=== PATIENT | male | born 1995 | race Native Hawaiian/Other Pacific Islander ===

== ENCOUNTER 2018-06-02 18:45 | Emergency (ER) | payer OTHER ==
--- NOTE | 2018-06-02 20:41 | ED PDOC ---
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 Patient was playing basketball when he jumped up and broke his fall with his left hand. He has acute pain and numbness in his fingers. Patient has not taken any medication for pain. PMD: None provided <Amarilys Cabrera - Last Filed: 06/04/18 21:41> <Bret Teran - Last Filed: 06/05/18 13:53> Time Seen by Provider: 06/02/18 19:06 Chief Complaint (Nursing): Upper Extremity Problem/Injury Supervising Attending Note - Supervising Attending Note The Documented history was done by the: Physician Drilling Engineering Manager, Attending Physician The documented physical exam was done by the: Physician Drilling Engineering Manager, Attending Physician The documented procedures were done by the: Physician Drilling Engineering Manager, Attending Physician - Attestation: I have personally seen and examined this patient.: Yes I have fully participated in the care of the patient.: Yes I have reviewed all pertinent clinical information: Yes <Bret eTran - Last Filed: 06/05/18 13:53> Past Medical History Reviewed: Historical Data, Nursing Documentation, Vital Signs Vital Signs: Last Vital Signs Temp 98.1 F 06/02/18 18:53 Pulse 96 H 06/02/18 18:53 Resp 16 06/02/18 18:53 BP 93/65 L 06/02/18 18:53 Pulse Ox 99 06/02/18 18:53 - Medical History PMH: No Chronic Diseases - Family History Family History: States: Unknown Family Hx <Amarilys Cabrera - Last Filed: 06/04/18 21:41> Reviewed: Historical Data Vital Signs: Last Vital Signs Temp 98.3 F 06/03/18 00:35 Pulse 72 06/03/18 00:35 Resp 18 06/03/18 00:35 BP 125/82 06/03/18 00:35 Pulse Ox 99 06/03/18 01:29 - Surgical History Surgical History: No Surg Hx <Bret Teran - Last Filed: 06/05/18 13:53> - Home Medications Home Medications: Ambulatory Orders Medication Instructions Recorded Ibuprofen [Motrin Tab] 800 mg PO Q6 PRN 7 Days tab 06/03/18 oxyCODONE/Acetaminophen [Percocet 1 ea PO Q8 PRN 3 Days tab 06/03/18 5/325 mg Tab] - Allergies Allergies/Adverse Reactions: Allergies Allergy/AdvReac Type Severity Reaction Status Date / Time Penicillins Allergy RASH Verified 06/02/18 18:47 Review of Systems ROS Statement: Except As Marked, All Systems Reviewed And Found Negative Musculoskeletal: Positive for: Other (left wrist pain with numbness in fingers) <Amarilys Cabrera - Last Filed: 06/04/18 21:41> ROS Statement: Except As Marked, All Systems Reviewed And Found Negative <Bret Teran - Last Filed: 06/05/18 13:53> Physical Exam - Reviewed Nursing Documentation Reviewed: Yes Vital Signs Reviewed: Yes - Physical Exam Appears: Positive for: Uncomfortable Head Exam: Positive for: ATRAUMATIC, NORMOCEPHALIC Skin: Positive for: Normal Color, Warm, Dry Eye Exam: Positive for: Normal appearance, EOMI, PERRL Pulses-Radial (L): 2+ Pulses-Radial (R): 2+ Extremity: Positive for: Capillary Refill (Is 3 seconds), Deformity (Left wrist), Swelling (Left wrist), Other (Left wrist: ecchymosis. Full ROM with flexion and extension of all 5 digits. Decreased ROM with flexion and extension of left wrist. Left elbow has full ROM. ) Neurological/Psych: Positive for: Awake, Alert, Oriented (X3) <Amarilys Cabrera - Last Filed: 06/04/18 21:41> - Reviewed Nursing Documentation Reviewed: Yes <Bret Teran - Last Filed: 06/05/18 13:53> - ECG O2 Sat by Pulse Oximetry: 99 (RA) Pulse Ox Interpretation: Normal <Amarilys Cabrera - Last Filed: 06/04/18 21:41> Medical Decision Making Medical Decision Making: Time: 19:58 Plan: --Left wrist XR --Ibuprofen 600 mg PO x1 --Ice pack to left wrist Time: 20:33 XR read by provider, grossly displaced distal radial fracture, not comminuted. Dr. Guo, Orthopedics consulted, awaiting return call. Left arm elevated. Time: 2107 --Still awaiting return call from Dr. Guo, radial pulse is 2+. 22:00: Case reviewed with Dr. Forbes who recommends manual reduction in ER, sugar tong splint with heavy padding. Pain management and follow up in office next week. Pt to have CT scan for follow up appointment. Procedure note: Reduction of Left wrist distal radial fracture Site: Left wrist Conscious sedation: Yes, Propofol while being monitored on ET CO2 and panel monitor administered at 22:29 Reduction attempts: 1 (successful) Pre-procedure NV exam: Yes, radial puse 2+ pre and post reduction; numbness resolved post-reduction Post joint reduction film: Joint reduced Procedure completed 22:33, sugar tong splint placed immediately after x-ray confirmation of reduction 00:30: pt monitored on telemetry for 2 hours, awake and alert immediately after procedure completed at 22:35. He is feeling well. Hand Clerical Verifier number [id number] used for discharge instructions including need to keep splint dry, addictive properties of Percocet so to use only for severe pain not managed by Ibuprofen. All questions answered. Patient cleared to fly tomorrow to [place] as planned but advised to present to local ER if he has worsening numbness or swelling of Left hand. ScribeAttestation: Documented byAna Ellison, acting as a scribe for Amarilys Cabrera PA-C. Provider ScribeAttestation: All medical record entries made by the Scribe were at my direction and personally dictated by me. I have reviewed the chart and agree that the record accurately reflects my personal performance of the history, physical exam, medical decision making, and the department course for this patient. I have also personally directed, reviewed, and agree with the discharge instructions and disposition. <Amarilys Cabrera - Last Filed: 06/04/18 21:41> Medical Decision Makin i personally examined the patient. left arm left hand NV intact. CR normal. Warm skin. soft on palpation, pulses 2+ <Bret Teran Nohemy - Last Filed: 06/05/18 13:53> Procedures - Time-Out Type of Procedure: reduction of left distal radial fracture Site of Procedure: left Correct Patient: Yes Correct Procedure: Yes - Splinting Location: Left wrist Hand-Made Type: orthoglass Splint: sugar-tong Pre-Proc Neuro Vasc Exam: abnormal (mild numbess, radial pulse 2+) Post-Proc Neuro Vasc Exam: normal (Radial pulse 2+, normal sensation), changed from pre-exam (improved) <Amarilys Cabrera - Last Filed: 06/04/18 21:41> - Time-Out Correct Site Marked: Yes X-Ray Marked: Yes Physician Name: Jeffry - Joint Reduction Conscious Sedation: Yes Reduction Attempts: 1 Pre-Procedure NV Exam: Yes Post Joint Reduction Film: joint reduced Progress: Left wrist postprocedure NV intact <JosejohnBillcatina Nohemy - Last Filed: 06/05/18 13:53> Disposition - Patient ED Disposition Is Patient to be Admitted: No Discussed With DrAndre: Tello Forbes Counseled Patient/Family Regarding: Studies Performed, Diagnosis, Need For Followup, Rx Given - Disposition Disposition: Routine/Home Disposition Time: 00:40 <TimmyMigueCabralAmarilys - Last Filed: 06/04/18 21:41> Doctor Will See Patient In The: Office - POA Present On Arrival: Falls Or Trauma <Bret Teran - Last Filed: 06/05/18 13:53> - Clinical Impression Clinical Impression: Distal radius fracture, left - Disposition Referrals: Tello Forbes MD [Staff Provider] - Condition: GOOD Additional Instructions: Follow up with Dr. Forbes next week. His office will contact you to arrange appointment to discuss need for surgery. Take Tylenol or Ibuprofen for pain. Take Percocet for severe pain not treated with Ibuprofen or Tylenol. Return to ER if you develop worsening numbness or tingling of left hand. Read post- sedation instructions. Keep splint dry. Avoid using your left hand or arm while splint is in place. Prescriptions: Ibuprofen [Motrin Tab] 800 mg PO Q6 PRN 7 Days tab PRN Reason: Pain, Moderate (4-7) oxyCODONE/Acetaminophen [Percocet 5/325 mg Tab] 1 ea PO Q8 PRN 3 Days tab PRN Reason: Pain, Severe (8-10) Instructions: Radius Fracture (DC), Moderate Sedation in Adults (DC) Forms: [employer] (Upper Sorbian) Print Language: ANDORRAN ED Procedural Sedation <Amarilys Cabrera - Last Filed: 06/04/18 21:41> - Pre Anesthesia Assessment Last Known Meal: 1800 Past Medical History: Medications Reviewed, Allergies Reviewed Previous Surgies: Reviewed Family History/Social History: Reviewed - Physical Exam/Review of Systems Vital Signs Reviewed: Yes - Pre-Procedure Airway Assessment History of difficult intubation or surgical airway(i.e trach: No Inability to extend neck:: No Mouth opening less than two finger breadth:: No Diagnosis of sleep apnea:: No Less than three finger breadth to hyoid bone:: No ASA Criteria: 1 - Healthy, normal. 2 - Mild systemic disease (No functional limitations, mildline obesity, DM withot complications, Hypertention). 3 - Severe systemic disease (Some functional limitation, stable angina, morbid obesity, controlled COPD/Asthma/CHF). 4 - Sever systemic disease constant threat to life (Unstable angina, active symptoms of COPD/Asthma, CHF/Hypertension. 5 - Moribund ASA Clarification: ASA I Mallampati (airway): Class II - Intra-Procedure (Medications) Medications Given: Discontinued Medications Sodium Chloride (Sodium Chloride 0.9%) 1,000 mls @ 1,000 mls/hr IV .Q1H STA Stop: 06/02/18 22:41 Last Admin: 06/02/18 22:33 Dose: 1,000 mls/hr eMAR Start Stop Document 06/02/18 22:33 [email or web address] (Rec: 06/02/18 23:03 [email or web address] [id number]) Intravenous Solution Start Date 06/02/18 Start Time 22:33 Ibuprofen (Motrin Tab) 600 mg PO STAT STA Stop: 06/02/18 19:59 Last Admin: 06/02/18 20:04 Dose: 600 mg MAR Pain Assessment Document 06/02/18 20:04 [email or web address] (Rec: 06/02/18 20:04 [email or web address] [id number]) Pain Reassessment Is this a pain reassessment? No Sleep Is patient sleeping during reassessment? No Presence of Pain Presence of Pain Yes Pain Scale Used Protocol: PSCALES Pain Scale Used Numeric Location Left, Right or Bilateral Left Pain Location Body Site Wrist Description Description Constant Intensity of Pain at present 7 Pain Behavior Guarding Irritability Aggravating Factors ADL's Alleviating Factors/Management Medication Techniques Alleviating Factors Medication Re-Assess: MAR Pain Reassessment Document 06/02/18 21:04 [email or web address] (Rec: 06/02/18 22:01 [email or web address] [id number]) Sleep Is patient sleeping during reassessment? No Pain Reassessment Protocol: PSCALES Pain not relieved and LIP/MD was No notified Pain Scale Used Numeric Pain Scale Level 0 Propofol (Diprivan) 135 mg IV ONCE ONE Stop: 06/02/18 22:30 Last Admin: 06/02/18 23:09 Dose: 135 mg eMAR Start Stop Document 06/02/18 23:09 [email or web address] (Rec: 06/02/18 23:09 [email or web address] [id number]) Intravenous Solution Start Date 06/02/18 Start Time 22:29 Álvarez Agitation Sedation Document 06/02/18 23:09 [email or web address] (Rec: 06/02/18 23:09 [email or web address] [id number]) Álvarez Agitation Sedation Scale Álvarez Agitation Sedation Scale Score 0 Alert and Calm: Spontaneously pays attention to technical healthcare consultant Propofol 135 mg IV push Physician Pushed Medication: Yes - Post-Procedure Post Procedure Note: Deep sedation protocol Etco2 monitoring done Post procedure exam NV intact left arm splint applied <Bret Teran - Last Filed: 06/05/18 13:53> - Pre Anesthesia Assessment Chief Complaint: Upper Extremity Problem/Injury
[2018-06-02] MEDS ORDERED: Sodium Chloride 0.9% 1,000 ML IV STA (21:42)
[2018-06-02] MEDS ORDERED: Propofol 10 mg/ml Inj (20 ML) IV ONE ×2 (21:42→22:29)
[2018-06-02] MEDS ORDERED: Propofol 10 mg/ml Inj (20 ML) ONE (21:58)
[2018-06-02 23:53] VITALS: RESP 18
[2018-06-03 00:35] VITALS: BP 125/82; PULSE 72; TEMP 98.3
[2018-06-03 01:10] VITALS: O2SAT 99
--- NOTE | 2018-06-03 08:39 | RAD ---
Date of service: 06/02/2018 PROCEDURE: Left Wrist Radiographs. HISTORY: s/p reduction of left wrist fracture COMPARISON: None. FINDINGS: BONES: Three views of the left wrist were performed for left wrist fracture. Comparison made prior study performed earlier on the same day. There has been interval reduction of previously identified distal left radial fracture with improved anatomic alignment from the prior examination although some persistent overlap remains. Moderate soft tissue swelling is seen overlying the left wrist. No appreciable carpal bone fracture or abnormal carpal bone joint space widening is seen. Distal ulna is intact. There is additionally improved alignment of the carpus in relation to the radius. A tiny subtle loose body in the radiocarpal joint region is not excluded. JOINTS: See above. SOFT TISSUES: See above. OTHER FINDINGS: None. IMPRESSION: Status post external reduction of left wrist fracture described above.
--- NOTE | 2018-06-03 08:42 | RAD ---
Date of service: 06/02/2018 PROCEDURE: Left Wrist Radiographs. HISTORY: s/p fall onto left wrist, + deformity COMPARISON: None. FINDINGS: BONES: Three views of the left wrist were performed for left wrist pain. There is evidence of a angulated and moderately displaced distal left radial fracture. There is impaction and overlap of the distal radial fracture. The carpus appears to follow the fracture and there is some mild widening of the distal radial ulnar joint region. Distal ulna is intact. There is a subtle lucency possibly noted in the navicular bone on one view. Moderate overlying soft tissue swelling is seen. JOINTS: See above. SOFT TISSUES: See above. OTHER FINDINGS: None. IMPRESSION: Fracture of the distal left radius with moderate dorsal displacement and overlying impaction of the distal fracture.
--- NOTE | 2018-06-03 15:57 | CT ---
CT left wrist HISTORY: Left distal radial fracture status postreduction. Comparison: X-ray dated 06/02/2018 Technique: Multiple contiguous axial images were performed through the left wrist without the use of intravenous contrast. Subsequently, sagittal and coronal reformatted images were obtained. This CT exam was performed using one or more of the following dose reduction techniques: Automated exposure control, adjustment of the mA and/or kV according to patient size, and/or use of iterative reconstruction technique. Findings: Again identified is a markedly comminuted distracted and intra-articular fracture of the distal radius extending to the radiocarpal joint space. Prominent soft tissue swelling and edema noted at that level. Evaluation of positioning of the scaphoid and lunate as well as the additional carpal bones is limited given the suboptimal patient positioning and technique on this exam. Repeat CT study may be helpful. There appears to be some anterior subluxation of the distal radius in relationship to the scaphoid which may be exaggerated by patient positioning and technique. Again repeat CT study would be helpful to better evaluate for possible subluxation. There may also be some mild prominence of the scapholunate interval which may represent underlying scapholunate ligament injury. Correlation with MRI may be helpful if clinically indicated. In addition, given the suboptimal patient positioning, there may be some mild rotation of the pisiform in relationship to the triquetrum which again may likely be related to the suboptimal positioning as opposed to any rotation or subluxation. Again repeat CT study may be helpful if indicated. Prominent soft tissue swelling and edema within the circumferential subcutaneous soft tissues of the wrist. Small bone island in the head of the 1st metacarpal bone. Impression: 1. Again identified is a markedly comminuted distracted and intra-articular fracture of the distal radius extending to the radiocarpal joint space. Prominent soft tissue swelling and edema noted at that level. 2. Evaluation of positioning of the scaphoid and lunate as well as the additional carpal bones is limited given the suboptimal patient positioning and technique on this exam. Repeat CT study may be helpful. There appears to be some anterior subluxation of the distal radius in relationship to the scaphoid which may be exaggerated by patient positioning and technique. Again repeat CT study would be helpful to better evaluate for possible subluxation. 3. There may also be some mild prominence of the scapholunate interval which may represent underlying scapholunate ligament injury. Correlation with MRI may be helpful if clinically indicated. 4. In addition, given the suboptimal patient positioning, there may be some mild rotation of the pisiform in relationship to the triquetrum which again may likely be related to the suboptimal positioning as opposed to any rotation or subluxation. Again repeat CT study may be helpful if indicated. 5. Prominent soft tissue swelling and edema within the circumferential subcutaneous soft tissues of the wrist. A preliminary report was generated at 11:50 p.m. on 06/02/[address] Josep Nolasco from [employer].
== END 2018-06-03 00:45 | disposition home or self-care (01) ==
LOC: H.ER 18:45
DX: S52.592A Other fractures of lower end of left radius, initial encounter for closed fracture (principal); W19.XXXA Unspecified fall, initial encounter; Y92.310 Basketball court as the place of occurrence of the external cause
CPT/HCPCS: 29125; 73110; 73200; 99285; J2704; J7030